=== PATIENT | male | born 1970 | race Caucasian/White ===

== ENCOUNTER 2023-09-28 13:29 | Outpatient (CLI) | payer SELFPAY ==
--- NOTE | ~2023-09-28 | MR_ITS ---
EXAMINATION: MR foot RT wo con DATE: 09/28/2023 14:06 INDICATION: Osteomyelitis TECHNIQUE: Magnetic resonance imaging (MRI) of the right fore/mid foot was performed without intraven ous contrast. Sequences included sagittal T1-weighted FSE, sagittal fluid sensitive FSE STIR, coronal PD-weighted FS FSE, coronal T1-weighted FSE, axial PD-weighted FS FSE, and axial PD-weighted FSE. COMPARISON: None FINDINGS: Bone alignment is normal. No fracture. There is mild osteoarthritis at the first metatarsophalangeal joint with mild subarticular edema-like signal change at the articulation of the head of the first me tatarsal with the fibular sesamoid. Bone marrow signal is otherwise normal throughout with no reactiv e edema, osteomyelitis or other pathologic marrow replacing process. Remaining joint spaces appear no rmal. No joint effusions. The Lisfranc ligament complex as well as the collateral ligament complex at the metatarsophalangeal and interphalangeal joints are normal. The flexor and extensor tendons are n ormal with no evident tenosynovitis. There is soft tissue edema about the lateral side of the dorsum of the forefoot. 9 x 5 x 2 mm loculated fluid collection plantar to the base of the fifth proximal ph alanx most likely representing a minimal amount of fluid within an adventitious bursa and differentia l would include abscess in the appropriate clinical setting. Nonspecific diffuse mild increased fluid signal throughout the intrinsic muscular of the forefoot. IMPRESSION: 1. No lesion suspicious for osteomyelitis or other acute osseous abnormality. 2. Tiny loculated fluid collection plantar to the base of the fifth proximal phalanx most likely repr esenting an adventitial bursa. The differential would include abscess in the appropriate clinical set ting. Reviewed, dictated and finalized at location A. IMPRESSION: 1. No lesion suspicious for osteomyelitis or other acute osseous abnormality. 2. Tiny loculated fluid collection plantar to the base of the fifth proximal ph alanx most likely representing an adventitial bursa. The differential would inc lude abscess in the appropriate clinical setting.
== END 2023-09-28 13:30 ==
LOC: MICIMG 13:30
DX: M86.9 Osteomyelitis, unspecified (principal)
CPT/HCPCS: 73718